=== PATIENT | female | born 1955 | race Caucasian/White ===

== ENCOUNTER 2018-07-27 13:31 | Inpatient (IN) | payer OTHER ==
[~2018-07-27] VITALS: Ht 154.9 cm; Wt 75.9 kg
[2018-07-27 14:47] LABS: CHLORIDE 98 mmol/L (98-107)
[2018-07-27] MEDS ORDERED: ALBUTEROL/IPRATROPIUM 2.5MG/0.5MG, 3 ML ONE ×2 (14:50→20:48)
[2018-07-27 14:51] LABS: ALANINE AMINOTRANSFERASE 45 U/L (12-78); ALBUMIN 3.6 g/dL (3.4-5.0); ANION GAP 7 mmol/L (5-15); CALCIUM 9.3 mg/dL (8.5-10.1)
[2018-07-27 14:54] LABS: ALKALINE PHOSPHATASE 57 U/L (45-117); BILIRUBIN,TOTAL 0.5 mg/dL (0.2-1.0); CREATININE 0.75 mg/dL (0.55-1.02); TOTAL PROTEIN 6.7 g/dL (6.4-8.2); TROPONIN I < 0.015 ng/mL (0.000-0.045)
[2018-07-27] MEDS ORDERED: MORPHINE SULFATE 4 MG/ML, 1ML IVPush PRN (15:00)
[2018-07-27 15:27] LABS: MD YES; MEAN CORPUSCULAR HGB CONC 34.5 g/dL (32.4-35.8); MEAN CORPUSCULAR VOLUME 101.4 fL (80-100); MEAN PLATELET VOLUME 7.3 fL (7.4-10.4); PLATELET COUNT 76 x10^3/uL (130-400); RED CELL DISTRIBUTION WIDTH 20.3 % (9.6-15.2)
[2018-07-27 15:49] LABS: ANISOCYTOSIS 1+; BAND#(MANUAL) 0.02 x10^3/uL; BANDS%(MANUAL) 1 % (0-7); LYMPH#(MANUAL) 1.26 x10^3/uL (1-3.4); LYMPHS% (MANUAL) 70 % (22-44); MONOS#(MANUAL) 0.04 x10^3/uL (0.3-2.7); MONOS% (MANUAL) 2 % (2-9); SEG#(MANUAL) 0.49 x10^3/uL (1.8-6.8); SEGS% (MANUAL) 27 % (42-75)
[2018-07-27 15:50] LABS: <PLATELET ESTIMATE> DECREASED; <PLT MORPHOLOGY> NORMAL PLT MORPH
[2018-07-27] MEDS ORDERED: OMNIPAQUE 350 MG/ML, 100ML BOTTLE ONE (16:05)
[2018-07-27] MEDS ORDERED: PIPERACILLIN/TAZO/PMX 3.375GM 50 ML ONE (16:43)
[2018-07-27] MEDS ORDERED: ONDANSETRON ODT 4 MG PO PRN (17:00)
[2018-07-27] MEDS ORDERED: LABETALOL 5MG/ML, 20ML IVPush PRN (17:00)
[2018-07-27] MEDS ORDERED: PIPERACILLIN/TAZO/PMX 3.375GM 50 ML IV ONE (17:00)
[2018-07-27] MEDS ORDERED: ONDANSETRON 2MG/ML, 2ML IVPush PRN (17:00)
[2018-07-27] MEDS ORDERED: POLYETHYLENE GLYCOL 17 GM PACKET PO PRN (17:00)
[2018-07-27] MEDS ORDERED: VANCOMYCIN PER PHARMACY MC PRN (17:00)
[2018-07-27] MEDS ORDERED: ONDA8TAB9 PO (17:16)
[2018-07-27] MEDS ORDERED: CARV12.52 PO (17:16)
[2018-07-27] MEDS ORDERED: INSU100I13 SQ (17:16)
[2018-07-27] MEDS ORDERED: TIOT18CA INH (17:16)
[2018-07-27] MEDS ORDERED: FOLI0.4T2 PO (17:16)
[2018-07-27] MEDS ORDERED: NAPR-685 PO (17:16)
[2018-07-27] MEDS ORDERED: ALBU8.5H8 INH (17:16)
[2018-07-27] MEDS ORDERED: PYRI250T7 PO (17:16)
[2018-07-27] MEDS ORDERED: CYAN50003 PO (17:16)
[2018-07-27] MEDS ORDERED: CHOL100012 PO (17:16)
[2018-07-27] MEDS ORDERED: METF500T17 PO (17:16)
[2018-07-27] MEDS ORDERED: FLAX1CAP PO (17:16)
[2018-07-27] MEDS ORDERED: MAGN400T7 PO (17:16)
[2018-07-27] MEDS ORDERED: LETR2.5T PO (17:16)
[2018-07-27 18:01] VITALS: BP 100/62
[2018-07-27] MEDS ORDERED: PHARMACOKINETIC CONSULTATION MC ONE (18:30)
[2018-07-27] MEDS ORDERED: PHARMACOKINETIC MONITORING MC PRN (18:30)
[2018-07-27] MEDS ORDERED: VANCOMYCIN 1,500 MG in SODIUM CHLORIDE 0.9% 250 ML IV SCH (18:30)
[2018-07-27] MEDS: SODIUM CHLORIDE 0.9% 1,000 ML IV SCH (18:33)
[2018-07-27] MEDS ORDERED: morphine SULFATE 10 MG/ML, 1ML IVPush PRN (20:00)
[2018-07-27] MEDS ORDERED: LIDODERM 5% PATCH TD PRN (20:00)
[2018-07-27] MEDS ORDERED: SIMV40TA3 PO (20:29)
[2018-07-27] MEDS: KETOROLAC 30 MG/1 ML IVPush PRN (20:49)
[2018-07-27] MEDS: CEFEPIME 2 GM in DEXTROSE 5% 100 ML IV SCH (20:49)
[2018-07-27] MEDS ORDERED: DEXTROSE 4 GM TAB.CHEW PO PRN (21:00)
[2018-07-27] MEDS ORDERED: GLUCAGON 1 MG IM PRN (21:00)
[2018-07-27] MEDS ORDERED: CARVEDILOL 12.5 MG TABLET PO SCH (21:00)
[2018-07-27] MEDS ORDERED: SIMVASTATIN 40 MG TABLET PO SCH (21:00)
[2018-07-27] MEDS: SODIUM CHLORIDE FLUSH 10ML SYR IVF SCH (21:00)
[2018-07-27] MEDS ORDERED: DEXTROSE 50%, 50ML SYRINGE IVPush PRN (21:00)
[2018-07-27 21:26] VITALS: BP 103/53
[2018-07-27] MEDS: INSULIN LISPRO 100 UNITS/ML, PEN SQ-INSULIN SCH (22:09)
[2018-07-28 00:49] LABS: MICROSCOPIC NOT IND
[2018-07-28 00:52] LABS: CULTURE INDICATED? NO
[2018-07-28 02:53] VITALS: BP 103/62
[2018-07-28] MEDS: SODIUM CHLORIDE 0.9% 1,000 ML IV SCH ×2 (03:14→07:40)
[2018-07-28 05:59] LABS: MEAN CORPUSCULAR HGB CONC 34.5 g/dL (32.4-35.8); MEAN CORPUSCULAR VOLUME 101.6 fL (80-100); MEAN PLATELET VOLUME 7.2 fL (7.4-10.4); PLATELET COUNT 70 x10^3/uL (130-400); RED BLOOD COUNT 3.14 x10^6/uL (3.82-5.3); RED CELL DISTRIBUTION WIDTH 19.8 % (9.6-15.2)
[2018-07-28] MEDS ORDERED: CARVEDILOL 12.5 MG TABLET PO SCH (06:00)
[2018-07-28 06:06] LABS: CHLORIDE 103 mmol/L (98-107)
[2018-07-28] MEDS: CEFEPIME 2 GM in DEXTROSE 5% 100 ML IV SCH ×3 (06:17→21:15)
[2018-07-28 06:24] LABS: ALANINE AMINOTRANSFERASE 37 U/L (12-78); ALBUMIN 3.2 g/dL (3.4-5.0); ALKALINE PHOSPHATASE 55 U/L (45-117); ANION GAP 8 mmol/L (5-15); BILIRUBIN,TOTAL 0.5 mg/dL (0.2-1.0); CREATININE 0.73 mg/dL (0.55-1.02); THYROID STIMULATING HORMONE 0.194 mIU/L (0.358-3.740); TOTAL PROTEIN 6.2 g/dL (6.4-8.2)
[2018-07-28 06:25] LABS: MD YES
[2018-07-28 06:29] LABS: REACTIVE LYMPHS # (MANUAL) 0.02 x10^3/uL (0-0); REACTIVE LYMPHS % (MANUAL) 1 % (0-0)
[2018-07-28 06:30] LABS: ANISOCYTOSIS 1+; LYMPHS% (MANUAL) 50 % (22-44); MONOS#(MANUAL) 0.07 x10^3/uL (0.3-2.7); MONOS% (MANUAL) 4 % (2-9); SEG#(MANUAL) 0.81 x10^3/uL (1.8-6.8); SEGS% (MANUAL) 45 % (42-75)
[2018-07-28 06:31] LABS: <PLATELET ESTIMATE> DECREASED; <PLT MORPHOLOGY> NORMAL PLT MORPH
[2018-07-28] MEDS ORDERED: ALBUTEROL/IPRATROPIUM 2.5MG/0.5MG, 3 ML NPPB PRN (07:00)
[2018-07-28] MEDS ORDERED: ALBUTEROL/IPRATROPIUM 2.5MG/0.5MG, 3 ML NPPB SCH (07:00)
[2018-07-28] MEDS: SODIUM CHLORIDE FLUSH 10ML SYR IVF SCH ×2 (07:39→21:14)
[2018-07-28] MEDS: KETOROLAC 30 MG/1 ML IVPush PRN (07:39)
[2018-07-28] MEDS: SENNA/DOCUSATE TABLET PO SCH (07:39)
[2018-07-28] MEDS: INSULIN LISPRO 100 UNITS/ML, PEN SQ-INSULIN SCH ×4 (07:40→21:00)
[2018-07-28 08:13] VITALS: BP 110/65
[2018-07-28] MEDS ORDERED: METHOCARBAMOL 500 MG TABLET PO PRN (08:30)
[2018-07-28] MEDS: LEVOTHYROXINE 50 MCG TABLET PO SCH (09:13)
[2018-07-28] MEDS: CYANOCOBALAMIN 1,000 MCG TABLET PO SCH (09:13)
[2018-07-28] MEDS: FOLIC ACID 1 MG TABLET PO SCH (09:15)
[2018-07-28] MEDS: CHOLECALCIFEROL 1,000 UNIT TABLET PO SCH (09:16)
[2018-07-28] MEDS: metFORMIN 500 MG TABLET PO SCH ×2 (09:16→21:13)
[2018-07-28] MEDS: PYRIDOXINE 50MG TABLET PO SCH (09:17)
[2018-07-28] MEDS: LETROZOLE 2.5 MG TABLET PO SCH (09:20)
[2018-07-28 12:38] LABS: HEMOGLOBIN A1C 7.7 % (4.2-6.3)
[2018-07-28] MEDS ORDERED: SODIUM CHLORIDE INHALATION 7%, 4 ML NPPB ONE (13:00)
[2018-07-28 13:57] VITALS: BP 119/49
[2018-07-28] MEDS: CARVEDILOL 12.5 MG TABLET PO SCH (16:03)
[2018-07-28 19:08] VITALS: BP 123/62
[2018-07-28] MEDS ORDERED: SIMVASTATIN 40 MG TABLET PO SCH (21:00)
[2018-07-29 02:58] VITALS: BP 121/62
[2018-07-29] MEDS: LEVOTHYROXINE 50 MCG TABLET PO SCH (04:51)
[2018-07-29] MEDS: CEFEPIME 2 GM in DEXTROSE 5% 100 ML IV SCH (04:51)
[2018-07-29] MEDS: KETOROLAC 30 MG/1 ML IVPush PRN (04:51)
[2018-07-29 05:30] LABS: MEAN CORPUSCULAR HEMOGLOBIN 35.1 pg (27.0-34.8); MEAN CORPUSCULAR HGB CONC 34.6 g/dL (32.4-35.8); MEAN CORPUSCULAR VOLUME 101.5 fL (80-100); MEAN PLATELET VOLUME 7.4 fL (7.4-10.4); PLATELET COUNT 73 x10^3/uL (130-400); RED BLOOD COUNT 2.77 x10^6/uL (3.82-5.3); RED CELL DISTRIBUTION WIDTH 20.1 % (9.6-15.2)
[2018-07-29 05:37] LABS: ALBUMIN 2.8 g/dL (3.4-5.0); CALCIUM 8.3 mg/dL (8.5-10.1); CHLORIDE 108 mmol/L (98-107)
[2018-07-29 05:40] LABS: ANION GAP 7 mmol/L (5-15); CREATININE 0.41 mg/dL (0.55-1.02)
[2018-07-29 06:09] LABS: MD YES
[2018-07-29 06:11] LABS: ANISOCYTOSIS 1+; EOS#(MANUAL) 0.03 x10^3/uL (0.0-0.4); EOS% (MANUAL) 1 % (1-7); LYMPH#(MANUAL) 2.28 x10^3/uL (1-3.4); LYMPHS% (MANUAL) 69 % (22-44); MONOS#(MANUAL) 0.17 x10^3/uL (0.3-2.7); MONOS% (MANUAL) 5 % (2-9); SEG#(MANUAL) 0.83 x10^3/uL (1.8-6.8); SEGS% (MANUAL) 25 % (42-75)
[2018-07-29 06:12] LABS: <PLATELET ESTIMATE> DECREASED; <PLT MORPHOLOGY> NORMAL PLT MORPH
[2018-07-29] MEDS: INSULIN LISPRO 100 UNITS/ML, PEN SQ-INSULIN SCH ×2 (07:00→11:00)
[2018-07-29 08:11] VITALS: BP 130/68
[2018-07-29] MEDS: CARVEDILOL 12.5 MG TABLET PO SCH (08:14)
[2018-07-29] MEDS: SODIUM CHLORIDE FLUSH 10ML SYR IVF SCH (08:15)
[2018-07-29] MEDS: CHOLECALCIFEROL 1,000 UNIT TABLET PO SCH (08:16)
[2018-07-29] MEDS: FOLIC ACID 1 MG TABLET PO SCH (08:16)
[2018-07-29] MEDS: metFORMIN 500 MG TABLET PO SCH (08:17)
[2018-07-29] MEDS: PYRIDOXINE 50MG TABLET PO SCH (08:17)
[2018-07-29] MEDS: CYANOCOBALAMIN 1,000 MCG TABLET PO SCH (08:17)
[2018-07-29] MEDS: SENNA/DOCUSATE TABLET PO SCH (08:17)
[2018-07-29] MEDS: LETROZOLE 2.5 MG TABLET PO SCH (08:21)
[2018-07-29] MEDS ORDERED: LEVO750T26 PO (10:14)
== END 2018-07-29 13:02 | disposition home or self-care (01) | DRG 177 ==
LOC: ED 15:42 → EDIP 16:45 → 3NW 17:57
PROVIDERS: ADMIT Internal Medicine; ATTEND Internal Medicine
DX: J15.6 Pneumonia due to other Gram-negative bacteria (principal); J96.01 Acute respiratory failure with hypoxia; C79.51 Secondary malignant neoplasm of bone; M48.54XA Collapsed vertebra, not elsewhere classified, thoracic region, initial encounter for fracture; I42.7 Cardiomyopathy due to drug and external agent; J44.0 Chronic obstructive pulmonary disease with (acute) lower respiratory infection; J44.1 Chronic obstructive pulmonary disease with (acute) exacerbation; D69.6 Thrombocytopenia, unspecified; D89.9 Disorder involving the immune mechanism, unspecified; F17.200 Nicotine dependence, unspecified, uncomplicated; E11.9 Type 2 diabetes mellitus without complications; D70.2 Other drug-induced agranulocytosis; T45.1X5A Adverse effect of antineoplastic and immunosuppressive drugs, initial encounter; R59.0 Localized enlarged lymph nodes; C50.919 Malignant neoplasm of unspecified site of unspecified female breast; D75.89 Other specified diseases of blood and blood-forming organs; J45.30 Mild persistent asthma, uncomplicated; K59.00 Constipation, unspecified; Z80.0 Family history of malignant neoplasm of digestive organs; Z90.89 Acquired absence of other organs; Z98.51 Tubal ligation status; J15.9 Unspecified bacterial pneumonia
CPT/HCPCS: 36415; 84145; 99291; J7620; 71045; 71275; 80048; 80053; 81003; 82040; 82947; 82962; 83036; 83605; 83690; 83735; 83880; 84100; 84443; 84484; 85025; 85379; 87040; 87070; 87205; 93005; 93306; 94640; 96374; G0378; J1885; J2405; J2543; J3370; Q9967; J1815; J7030; J7050; J7512

== ENCOUNTER → 2018-09-07 | Outpatient (CLI) | payer OTHER ==
[~2018-09-07] MED LIST: ALBU8.5H8 INH; CARV12.52 PO; CHOL100012 PO; CYAN50003 PO; FLAX1CAP PO; FOLI0.4T2 PO; INSU100I13 SQ; LETR2.5T PO; LEVO750T26 PO; MAGN400T7 PO; METF500T17 PO; NAPR-685 PO; ONDA8TAB9 PO; PYRI250T7 PO; SIMV40TA3 PO; TIOT18CA INH
== END | disposition home or self-care (01) ==
LOC: CFH 13:08
PROVIDERS: ATTEND Family Medicine
DX: R91.8 Other nonspecific abnormal finding of lung field (principal)
CPT/HCPCS: 71046

== ENCOUNTER → 2018-11-27 | Outpatient (CLI) | payer OTHER ==
[~2018-11-27] MED LIST changes: +OMNIPAQUE 350 MG/ML, 100ML BOTTLE ONE
== END | disposition home or self-care (01) ==
LOC: RAD 12:31
PROVIDERS: ATTEND Internal Medicine Hematology & Oncology
DX: C79.51 Secondary malignant neoplasm of bone (principal); C79.89 Secondary malignant neoplasm of other specified sites; D17.71 Benign lipomatous neoplasm of kidney; R91.8 Other nonspecific abnormal finding of lung field; R59.0 Localized enlarged lymph nodes; C50.412 Malignant neoplasm of upper-outer quadrant of left female breast
CPT/HCPCS: 71260; 74177; Q9967

== ENCOUNTER 2018-11-29 11:52 | Emergency (ER) | payer OTHER ==
[~2018-11-29] VITALS: Ht 157.5 cm; Wt 80.0 kg
[~2018-11-29 11:52] MED LIST changes: -OMNIPAQUE 350 MG/ML, 100ML BOTTLE ONE
[2018-11-29] MEDS ORDERED: METHOCARBAMOL 1,000 MG in DEXTROSE 5% 100 ML IV ONE (12:30)
[2018-11-29] MEDS ORDERED: KETOROLAC 30 MG/1 ML IVPush ONE (12:30)
[2018-11-29] MEDS ORDERED: MORPHINE SULFATE 4 MG/ML, 1ML IVPush PRN (12:30)
[2018-11-29] MEDS ORDERED: SODIUM CHLORIDE FLUSH 10ML SYR IVF ONE (12:30)
[2018-11-29 12:50] LABS: BASOPHILS # (AUTO) 0.01 x10^3/uL (0-0.1); BASOPHILS % (AUTO) 0 % (0-1); EOSINOPHILS # (AUTO) 0.08 x10^3/uL (0-0.4); EOSINOPHILS % (AUTO) 2 % (1-7); LYMPHOCYTES # (AUTO) 1.78 x10^3/uL (1-3.4); LYMPHOCYTES % (AUTO) 36 % (22-44); MD NO; MEAN CORPUSCULAR HGB CONC 33.6 g/dL (32.4-35.8); MEAN CORPUSCULAR VOLUME 98.1 fL (80-100); MEAN PLATELET VOLUME 6.7 fL (7.4-10.4); MONOCYTES # (AUTO) 0.49 x10^3/uL (0.2-0.8); MONOCYTES % (AUTO) 10 % (2-9); NEUTROPHILS # (AUTO) 2.55 x10^3/uL (1.8-6.8); NEUTROPHILS % (AUTO) 52 % (42-75); PLATELET COUNT 213 x10^3/uL (130-400); RED BLOOD COUNT 3.49 x10^6/uL (3.82-5.3); RED CELL DISTRIBUTION WIDTH 18.7 % (9.6-15.2)
[2018-11-29 12:54] LABS: MICROSCOPIC AUTO
[2018-11-29] MEDS ORDERED: KETOROLAC 30 MG/1 ML ONE (12:56)
[2018-11-29] MEDS ORDERED: MORPHINE SULFATE 4 MG/ML, 1ML ONE (12:57)
[2018-11-29 12:58] LABS: CULTURE INDICATED? YES
[2018-11-29 13:01] LABS: ALANINE AMINOTRANSFERASE 25 U/L (12-78); ALBUMIN 3.9 g/dL (3.4-5.0); ANION GAP 4 mmol/L (5-15); CALCIUM 9.8 mg/dL (8.5-10.1); CHLORIDE 100 mmol/L (98-107)
[2018-11-29 13:03] LABS: ALKALINE PHOSPHATASE 107 U/L (45-117); BILIRUBIN,TOTAL 0.4 mg/dL (0.2-1.0)
[2018-11-29 13:11] VITALS: BP 126/51
--- NOTE | 2018-11-29 13:21 | NUR ---
TO BEDSIDE TO RECHECK PT. NEW ORDERS RECEIVED AT THIS TIME
[2018-11-29] MEDS ORDERED: LIDODERM 5% PATCH TD ONE ×2 (13:25→13:30)
== END 2018-11-29 13:50 | disposition home or self-care (01) ==
LOC: ED 13:20
DX: M46.1 Sacroiliitis, not elsewhere classified (principal); N30.00 Acute cystitis without hematuria; J45.909 Unspecified asthma, uncomplicated; E11.9 Type 2 diabetes mellitus without complications; Z85.3 Personal history of malignant neoplasm of breast
CPT/HCPCS: 36415; 80053; 81001; 85025; 87077; 87086; 96365; 96375; 99283; J1885; J2800; 87186

== ENCOUNTER → 2019-03-03 | Outpatient (CLI) | payer OTHER | END | disposition home or self-care (01) | LOC: PETCFH 07:40 | PROVIDERS: ATTEND Internal Medicine Hematology & Oncology | DX: C50.412 Malignant neoplasm of upper-outer quadrant of left female breast (principal); R59.9 Enlarged lymph nodes, unspecified; R60.9 Edema, unspecified | CPT/HCPCS: 78815; A9552 ==

== ENCOUNTER 2019-03-17 11:12 | Emergency (ER) | payer OTHER ==
[~2019-03-17] VITALS: Ht 154.9 cm; Wt 70.3 kg
[2019-03-17 13:26] VITALS: BP 151/87
== END 2019-03-17 13:54 | disposition home or self-care (01) ==
LOC: ED 13:25
DX: C79.51 Secondary malignant neoplasm of bone (principal); M25.551 Pain in right hip; E11.9 Type 2 diabetes mellitus without complications; Z85.3 Personal history of malignant neoplasm of breast; Z72.9 Problem related to lifestyle, unspecified; F17.200 Nicotine dependence, unspecified, uncomplicated
CPT/HCPCS: 36415; 73552; 80048; 82040; 85025; 96374; 96375; 99284; J1885; J2270

== ENCOUNTER 2019-03-23 11:41 | Inpatient (IN) | payer OTHER ==
[~2019-03-23] VITALS: Ht 154.9 cm; Wt 70.4 kg
[2019-03-23 12:29] LABS: BASOPHILS # (AUTO) 0.02 x10^3/uL (0-0.1); BASOPHILS % (AUTO) 0 % (0-1); EOSINOPHILS # (AUTO) 0.15 x10^3/uL (0-0.4); EOSINOPHILS % (AUTO) 3 % (1-7); LYMPHOCYTES # (AUTO) 1.45 x10^3/uL (1-3.4); LYMPHOCYTES % (AUTO) 25 % (22-44); MD NO; MEAN CORPUSCULAR HGB CONC 32.8 g/dL (32.4-35.8); MEAN CORPUSCULAR VOLUME 97.6 fL (80-100); MEAN PLATELET VOLUME 6.7 fL (7.4-10.4); MONOCYTES # (AUTO) 0.37 x10^3/uL (0.2-0.8); MONOCYTES % (AUTO) 6 % (2-9); NEUTROPHILS # (AUTO) 3.89 x10^3/uL (1.8-6.8); NEUTROPHILS % (AUTO) 66 % (42-75); PLATELET COUNT 259 x10^3/uL (130-400); RED BLOOD COUNT 2.79 x10^6/uL (3.82-5.3); RED CELL DISTRIBUTION WIDTH 17.4 % (9.6-15.2)
[2019-03-23] MEDS ORDERED: SODIUM CHLORIDE FLUSH 10ML SYR IVF ONE ×2 (12:30→13:00)
--- NOTE | 2019-03-23 12:31 | NUR ---
PROCEDURE RN: PT TO ED ROOM 18 FROM LOBBY IN NAD AT THIS TIME
[2019-03-23 12:53] LABS: ALBUMIN 3.2 g/dL (3.4-5.0); ANION GAP 5 mmol/L (5-15); CALCIUM 10.1 mg/dL (8.5-10.1); CHLORIDE 99 mmol/L (98-107)
[2019-03-23] MEDS ORDERED: ONDANSETRON 2MG/ML, 2ML IVPush ONE (13:00)
[2019-03-23] MEDS ORDERED: KETOROLAC 30 MG/1 ML IM ONE (13:00)
[2019-03-23] MEDS ORDERED: KETOROLAC 30 MG/1 ML ONE (13:12)
[2019-03-23] MEDS ORDERED: ONDANSETRON 2MG/ML, 2ML ONE (13:12)
[2019-03-23] MEDS ORDERED: HYDROmorphone 1 MG/ML, 1ML VIAL ONE (13:13)
[2019-03-23 13:14] LABS: ALANINE AMINOTRANSFERASE 21 U/L (12-78); ALKALINE PHOSPHATASE 111 U/L (45-117); BILIRUBIN,TOTAL 0.5 mg/dL (0.2-1.0); CREATININE 0.47 mg/dL (0.55-1.02); TOTAL PROTEIN 7.3 g/dL (6.4-8.2)
[2019-03-23] MEDS: HYDROmorphone 2 MG/ML, 1ML IVPush PRN ×2 (13:18→17:09)
--- NOTE | 2019-03-23 13:32 | NUR ---
[facility] TELEPHONE HAND-OFF REPORT TO MINDY WILSON. PT READY TO GO TO ONC.
[2019-03-23] MEDS ORDERED: METF500T27 PO (13:36)
[2019-03-23] MEDS ORDERED: LOSA25TA25 PO (13:38)
[2019-03-23] MEDS ORDERED: NAPR-685 PO (13:38)
[2019-03-23] MEDS ORDERED: ASPI-496 PO (13:38)
[2019-03-23 15:00] VITALS: BP 127/65
[2019-03-23] MEDS ORDERED: METHOCARBAMOL 500 MG TABLET PO PRN (16:00)
[2019-03-23] MEDS ORDERED: ONDANSETRON ODT 4 MG PO PRN (16:00)
[2019-03-23] MEDS: INSULIN LISPRO 100 UNITS/ML, PEN SQ-INSULIN SCH ×2 (16:00→21:21)
[2019-03-23] MEDS ORDERED: ONDANSETRON 2MG/ML, 2ML IVPush PRN (16:00)
[2019-03-23] MEDS ORDERED: BISACODYL 10 MG SUPP PR PRN (16:00)
[2019-03-23] MEDS ORDERED: morphine SULFATE 10 MG/ML, 1ML IVPush PRN (16:00)
[2019-03-23] MEDS ORDERED: ACETAMINOPHEN 325 MG TABLET PO PRN (16:00)
[2019-03-23] MEDS ORDERED: LIDODERM 5% PATCH TD PRN (16:00)
[2019-03-23] MEDS ORDERED: POLYETHYLENE GLYCOL 17 GM PACKET PO PRN (16:00)
[2019-03-23] MEDS ORDERED: KETOROLAC 30 MG/1 ML IV PRN (16:00)
[2019-03-23] MEDS: CARVEDILOL 12.5 MG TABLET PO SCH (16:30)
[2019-03-23] MEDS: HEPARIN 5,000 UNITS/ML, 1ML SQ SCH (16:32)
[2019-03-23] MEDS ORDERED: ALBUTEROL/IPRATROPIUM 2.5MG/0.5MG, 3 ML NPPB PRN (17:00)
[2019-03-23] MEDS: OXYcodone IR 5MG TABLET PO PRN ×2 (17:07→21:28)
[2019-03-23] MEDS: NICOTINE 21 MG/24 HR PATCH.TD24 TD SCH (17:10)
[2019-03-23] MEDS ORDERED: GADOBUTROL 7.5 MMOL/7.5 ML PFS ONE (18:01)
[2019-03-23 18:33] LABS: CULTURE INDICATED? YES; MICROSCOPIC INDICATED
[2019-03-23 20:05] VITALS: BP 96/62
[2019-03-24] MEDS: HEPARIN 5,000 UNITS/ML, 1ML SQ SCH ×2 (00:23→08:36)
[2019-03-24 02:38] VITALS: BP 110/64
[2019-03-24] MEDS: OXYcodone IR 5MG TABLET PO PRN ×3 (05:37→22:56)
[2019-03-24 05:59] LABS: BASOPHILS # (AUTO) 0.03 x10^3/uL (0-0.1); BASOPHILS % (AUTO) 1 % (0-1); EOSINOPHILS # (AUTO) 0.11 x10^3/uL (0-0.4); EOSINOPHILS % (AUTO) 2 % (1-7); LYMPHOCYTES # (AUTO) 1.62 x10^3/uL (1-3.4); LYMPHOCYTES % (AUTO) 30 % (22-44); MD NO; MEAN CORPUSCULAR HEMOGLOBIN 30.8 pg (27.0-34.8); MEAN CORPUSCULAR HGB CONC 31.9 g/dL (32.4-35.8); MEAN CORPUSCULAR VOLUME 96.5 fL (80-100); MEAN PLATELET VOLUME 6.9 fL (7.4-10.4); MONOCYTES # (AUTO) 0.43 x10^3/uL (0.2-0.8); MONOCYTES % (AUTO) 8 % (2-9); NEUTROPHILS # (AUTO) 3.23 x10^3/uL (1.8-6.8); NEUTROPHILS % (AUTO) 60 % (42-75); PLATELET COUNT 223 x10^3/uL (130-400); RED BLOOD COUNT 2.39 x10^6/uL (3.82-5.3)
[2019-03-24 06:27] LABS: ALANINE AMINOTRANSFERASE 20 U/L (12-78); ALBUMIN 2.9 g/dL (3.4-5.0); ANION GAP 6 mmol/L (5-15); CALCIUM 9.8 mg/dL (8.5-10.1); CHLORIDE 100 mmol/L (98-107); CREATININE 0.44 mg/dL (0.55-1.02)
[2019-03-24 06:29] LABS: ALKALINE PHOSPHATASE 93 U/L (45-117); BILIRUBIN,TOTAL 0.4 mg/dL (0.2-1.0); TOTAL PROTEIN 6.2 g/dL (6.4-8.2)
[2019-03-24 08:08] VITALS: BP 126/66
[2019-03-24] MEDS: TEMPLATE NON-FORMULARY MED. (Tiotropium Bromide** (Spiriva**) 18 MCG) INH SCH (08:32)
[2019-03-24] MEDS: SENNA/DOCUSATE TABLET PO SCH (08:34)
[2019-03-24] MEDS: ASPIRIN 81 MG TABLET EC PO SCH (08:34)
[2019-03-24] MEDS: CARVEDILOL 12.5 MG TABLET PO SCH ×2 (08:35→16:37)
[2019-03-24] MEDS: LOSARTAN 25MG TABLET PO SCH (08:36)
[2019-03-24] MEDS: LETROZOLE 2.5 MG TABLET PO SCH (08:40)
[2019-03-24] MEDS: INSULIN LISPRO 100 UNITS/ML, PEN SQ-INSULIN SCH ×6 (08:42→21:00)
[2019-03-24 12:39] VITALS: BP 102/62
[2019-03-24] MEDS: CEFTRIAXONE PMX 1GM/50ML 50 ML IV SCH (16:41)
[2019-03-24] MEDS: NICOTINE 21 MG/24 HR PATCH.TD24 TD SCH (16:52)
[2019-03-24 17:19] LABS: HEMOGLOBIN A1C 6.9 % (4.2-6.3)
[2019-03-24] MEDS ORDERED: OMNIPAQUE 350 MG/ML, 100ML BOTTLE ONE (18:18)
[2019-03-24 20:52] VITALS: BP 106/61
[2019-03-24] MEDS: GABAPENTIN 100 MG CAPSULE PO SCH (21:25)
[2019-03-25 01:35] VITALS: BP 111/64
[2019-03-25 06:14] LABS: MEAN CORPUSCULAR HEMOGLOBIN 31.3 pg (27.0-34.8); MEAN CORPUSCULAR HGB CONC 32.8 g/dL (32.4-35.8); MEAN CORPUSCULAR VOLUME 95.5 fL (80-100); MEAN PLATELET VOLUME 6.8 fL (7.4-10.4); PLATELET COUNT 219 x10^3/uL (130-400); RED BLOOD COUNT 2.36 x10^6/uL (3.82-5.3); RED CELL DISTRIBUTION WIDTH 17.2 % (9.6-15.2)
[2019-03-25 06:26] LABS: CHLORIDE 99 mmol/L (98-107)
[2019-03-25 06:45] LABS: ANION GAP 7 mmol/L (5-15); CALCIUM 9.5 mg/dL (8.5-10.1); CREATININE 0.45 mg/dL (0.55-1.02)
[2019-03-25 07:00] LABS: BASOPHILS # (AUTO) 0.02 x10^3/uL (0-0.1); BASOPHILS % (AUTO) 1 % (0-1); EOSINOPHILS # (AUTO) 0.12 x10^3/uL (0-0.4); EOSINOPHILS % (AUTO) 2 % (1-7); LYMPHOCYTES % (AUTO) 30 % (22-44); MD SCAN; MONOCYTES # (AUTO) 0.39 x10^3/uL (0.2-0.8); MONOCYTES % (AUTO) 8 % (2-9); NEUTROPHILS % (AUTO) 60 % (42-75)
[2019-03-25] MEDS: INSULIN LISPRO 100 UNITS/ML, PEN SQ-INSULIN SCH ×5 (07:00→16:26)
[2019-03-25 07:31] VITALS: BP 108/66
[2019-03-25] MEDS: TEMPLATE NON-FORMULARY MED. (Tiotropium Bromide** (Spiriva**) 18 MCG) INH SCH (08:17)
[2019-03-25] MEDS: GABAPENTIN 100 MG CAPSULE PO SCH (08:44)
[2019-03-25] MEDS: CARVEDILOL 12.5 MG TABLET PO SCH ×2 (08:44→16:20)
[2019-03-25] MEDS: LOSARTAN 25MG TABLET PO SCH (08:45)
[2019-03-25] MEDS: ASPIRIN 81 MG TABLET EC PO SCH (08:45)
[2019-03-25] MEDS: SENNA/DOCUSATE TABLET PO SCH (08:45)
[2019-03-25] MEDS: LETROZOLE 2.5 MG TABLET PO SCH (08:46)
[2019-03-25] MEDS ORDERED: METHYLNALTREXONE 12 MG/0.6 ML SYR SQ SCH (14:00)
[2019-03-25] MEDS ORDERED: OXYC5TAB3 PO (14:04)
[2019-03-25] MEDS ORDERED: LIDO700A20 TD (14:04)
[2019-03-25] MEDS ORDERED: MORP-29 PO (14:04)
[2019-03-25] MEDS ORDERED: NITR100C56 PO (14:04)
[2019-03-25] MEDS ORDERED: GABA-826 PO (14:04)
[2019-03-25 14:05] VITALS: BP 96/56
[2019-03-25] MEDS: CEFTRIAXONE PMX 1GM/50ML 50 ML IV SCH (15:11)
[2019-03-25] MEDS: NICOTINE 21 MG/24 HR PATCH.TD24 TD SCH (16:20)
[2019-05-04] MEDS ORDERED: INSU100I17 SQ (11:02)
[2019-05-10] MEDS ORDERED: FURO40TA6 PO (11:02)
[2019-05-10] MEDS ORDERED: PRAV20TA PO (11:02)
[2019-05-10] MEDS ORDERED: POTA20TA6 PO (11:02)
== END 2019-03-25 19:17 | disposition home or self-care (01) | DRG 803 ==
LOC: ED 12:40 → EDIP 12:47 → ED 13:05 → 3NW 13:44
PROVIDERS: ADMIT Internal Medicine; ATTEND Internal Medicine
PROC: 30233N1 Transfusion of Nonautologous Red Blood Cells into Peripheral Vein, Percutaneous Approach (ICD-10-PCS; principal; 2019-03-23)
PROC: 07B63ZX Excision of Left Axillary Lymphatic, Percutaneous Approach, Diagnostic (ICD-10-PCS; 2019-03-25)
DX: D64.81 Anemia due to antineoplastic chemotherapy (principal); C79.51 Secondary malignant neoplasm of bone; N39.0 Urinary tract infection, site not specified; I42.9 Cardiomyopathy, unspecified; E87.1 Hypo-osmolality and hyponatremia; G89.3 Neoplasm related pain (acute) (chronic); T40.605A Adverse effect of unspecified narcotics, initial encounter; K59.03 Drug induced constipation; J44.9 Chronic obstructive pulmonary disease, unspecified; F17.200 Nicotine dependence, unspecified, uncomplicated; E11.9 Type 2 diabetes mellitus without complications; C50.919 Malignant neoplasm of unspecified site of unspecified female breast; B96.20 Unspecified Escherichia coli [E. coli] as the cause of diseases classified elsewhere; Z99.81 Dependence on supplemental oxygen; Z87.442 Personal history of urinary calculi; Z85.3 Personal history of malignant neoplasm of breast; Z79.84 Long term (current) use of oral hypoglycemic drugs; Z87.01 Personal history of pneumonia (recurrent); Z98.51 Tubal ligation status; Z98.49 Cataract extraction status, unspecified eye; Z80.0 Family history of malignant neoplasm of digestive organs; Z80.8 Family history of malignant neoplasm of other organs or systems
CPT/HCPCS: 36415; 72158; 76942; 80048; 80053; 81001; 82728; 82962; 83036; 83540; 83550; 84466; 85025; 86850; 86900; 86923; 87077; 87086; 87186; 88172; 88173; 96374; A9585; G0378; J0696; J1170; J1644; J2405; Q0162; Q9967; J1815